=== PATIENT | male | born 1960 | race African-American/Black ===

== ENCOUNTER 2017-10-01 16:29 | Emergency (ER) | payer MEDICAID ==
[~2017-10-01] VITALS: Ht 190.5 cm; Wt 91.8 kg
[~2017-10-01 16:29] MED LIST: LISI-360 PO; LORTA5 PO; MELO15TA2 PO; METH750T2 PO; METO25CR PO
[2017-10-01 16:34] VITALS: BP 164/90; PULSE 75; RESP 16; TEMP 98.4; O2SAT 98
[2017-10-01] MEDS ORDERED: METO1TAB42 PO (16:48)
[2017-10-01] MEDS ORDERED: LISI10TA3 PO (16:48)
[2017-10-01] MEDS ORDERED: ASPI81CH7 CHEW (16:48)
--- NOTE | 2017-10-01 17:32 | PD ---
HPI Chief Complaint: Cold / Flu Symptoms Time Seen by Provider: 17:20 Travel History International Travel<30 days: No Contact w/Intl Traveler<30days: No Traveled to known affect area: No History of Present Illness HPI 56-year-old male presents to the emergency department for 2 separate issues. First, the patient reports cold symptoms that started on Tuesday, 4 days ago. He reports cough, congestion, low-grade fevers up to 100.0. Patient has been taking ibuprofen. He also reports left thigh and calf pain that started on Tuesday with paresthesias to the first 2 toes. Patient denies a traumatic injury. He denies any loss of bowel or bladder control. No saddle anesthesias. Current pain is 7/10. Exacerbating factors movement. Relieving factors keeping the foot still. Reports history of hypertension. He denies any history of IV drug use. Moderate severity. PFSH Past Medical History Hx Anticoagulant Therapy: Yes (BABY ASA DAILY) Cardiovascular Problems: Yes (HTN) Diabetes: No Diminished Hearing: No Hypertension: Yes Tetanus Vaccination: Unknown Social History Alcohol Use: No Tobacco Use: No Substance Use: No Allergies-Medications (Allergen,Severity, Reaction): Coded Allergies: No Known Allergies (Unverified Adverse Reaction, Unknown, 10/01/17) Reported Meds & Prescriptions Reported Meds & Active Scripts Active Reported Metoprolol Succinate ER 24 HR (Metoprolol Succinate) 25 Mg Tab 25 Mg PO DAILY Lisinopril 10 Mg Tab 10 Mg PO DAILY Aspirin Children's (Aspirin) 81 Mg Chew 81 Mg CHEW DAILY Review of Systems Except as stated in HPI: all other systems reviewed are Neg Physical Exam Narrative GENERAL: Well-nourished, well-developed male patient, afebrile. SKIN: Focused skin assessment warm/dry. HEAD: Normocephalic. Atraumatic. ENT: Mucosa pink and moist. No erythema or exudates. No uvular edema. No uvular , palatal, or tonsillar deviation. Airway patent. Nasal turbinates appear normal without nasal blood, purulent drainage or septal hematoma. Bilateral tympanic membranes clear without erythema or perforation. EYES: No scleral icterus. No injection or drainage. NECK: Supple, trachea midline. No JVD or lymphadenopathy. CARDIOVASCULAR: Regular rate and rhythm without murmurs, gallops, or rubs. Left pedal pulse is 2+. RESPIRATORY: Breath sounds equal bilaterally. No accessory muscle use. Lung sounds are clear to auscultation. GASTROINTESTINAL: Abdomen soft, non-tender, nondistended. MUSCULOSKELETAL: No cyanosis, or edema. Patient has tenderness over left posterior calf to palpation. No erythema or edema. He easily feels nailbed pressure to the digits of the left foot. Patient can easily move all digits of the left foot. Capillary refill is less than 2 seconds to the digits of the left foot. BACK: Nontender without obvious deformity. No CVA tenderness. No midline spinal tenderness. Data Data Last Documented VS Vital Signs Date Time Temp Pulse Resp B/P (MAP) Pulse Ox O2 Delivery O2 Flow Rate FiO2 10/01/17 16:34 98.4 75 16 164/90 (114) 98 Orders Orders Influenzae A/B Antigen (10/01/17 17:26) Chest, Pa & Lat (10/01/17 ) Us Leg Venous Doppler (10/01/17 ) Orphenadrine Inj (Norflex Inj) (10/01/17 17:30) [facility] Medical Decision Making Medical Screen Exam Complete: Yes Emergency Medical Condition: Yes Medical Record Reviewed: Yes Interpretation(s) Last Impressions Lower Extremity Ultrasound 10/01/17 0000 Signed Impressions: Service Date/Time: Sunday, October 01, 2017 17:54 - CONCLUSION: No DVT. Nick Gore MD Chest X-Ray 10/01/17 0000 Signed Impressions: Service Date/Time: Sunday, October 01, 2017 18:02 - CONCLUSION: No acute disease. Daniel Hanks MD Differential Diagnosis URI versus influenza versus pneumonia versus sciatica versus DVT versus muscle strain versus spasm Narrative Course 56-year-old male presents to the emergency department for evaluation of cold symptoms as well as left leg pain. He does appear well on exam. Patient recently took ibuprofen for pain. He is given Norflex 60 mg IM. Influenza, chest x-ray, venous Doppler ultrasound of the left lower extremity is ordered and pending. Influenza is positive for influenza A. Chest x-ray shows no acute disease. Ultrasound is negative for DVT. Patient will be discharged with a RX for Tamiflu for Flu. He will be discharged with a prescription for Ibuprofen, Robaxin, Prednisone for sciatica. He is encouraged to follow up with his primary care physician. He is to return for any acute, worsening of symptoms. Diagnosis Primary Impression: Influenza A Additional Impression: Sciatica Qualified Codes: M54.32 - Sciatica, left side Referrals: Primary Care Physician call for appointment Patient Instructions: General Instructions, Influenza (ED), Sciatica (ED) Departure Forms: Tests/Procedures, Work Release Enter return to work date: October 04, 2017 Additional Instructions: Take Tamiflu as directed. Take ibuprofen as directed as needed with food for pain. Take Robaxin as directed as needed. Take prednisone as directed. Follow-up with a primary care physician. Return to the emergency department for any acute worsening of symptoms. Med/Other Pt SpecificInfo: Prescription(s) given Scripts Methocarbamol (Robaxin) 750 Mg Tab 750 MG PO TID Y for MUSCLE SPASM, #21 TAB 0 Refills Prov: Tram Bender 10/01/17 Ibuprofen (Ibuprofen) 800 Mg Tab 800 MG PO TID Y for PAIN SCALE 1 TO 10, #21 TAB 0 Refills Prov: Tram Bender 10/01/17 Prednisone (Prednisone) 20 Mg Tab 40 MG PO DAILY, #10 TAB 0 Refills Take 40 mg (2 tablets) daily for 5 days Prov: Tram Bender 10/01/17 Oseltamivir (Tamiflu) 75 Mg Cap 75 MG PO BID for Mgmt Viral Infection for 5 Days, #10 CAP 0 Refills Prov: Tram Bender 10/01/17 Disposition: 01 DISCHARGE HOME Condition: Stable Tram Bender Oct 01, 2017 17:32
[2017-10-01] MEDS: ORPHENADRINE INJ 60 MG/2 ML AMP IM ONE ×2 (17:35→17:41)
--- NOTE | 2017-10-01 18:19 | RADRPT ---
EXAM DATE/TIME: 10/01/2017 18:02 [facility] COMPARISON: No previous studies available for comparison. INDICATIONS : Fever and flu symptoms. MEDICAL HISTORY : Hypertension. SURGICAL HISTORY : None. ENCOUNTER: Initial ACUITY: 4 - 6 days PAIN SCORE: 0/10 LOCATION: Bilateral chest FINDINGS: PA and lateral views of the chest demonstrate the lungs to be symmetrically aerated without evidence of mass, infiltrate or effusion. The cardiomediastinal contours are unremarkable. Osseous structure s are intact. CONCLUSION: No acute disease. Daniel Hanks MD on October 01, 2017 at 18:16 Board Certified Radiologist. This report was verified electronically.
--- NOTE | 2017-10-01 18:22 | RADRPT ---
EXAM DATE/TIME: 10/01/2017 17:54 [facility] COMPARISON: No previous studies available for comparison. INDICATIONS : Left leg pain x 4 days. No swelling or redness. MEDICAL HISTORY : Hypertension. SURGICAL HISTORY : Back surgery. ENCOUNTER: Initial ACUITY: 4 - 6 days PAIN SCORE: 3/10 LOCATION: Left leg. TECHNIQUE: Venous ultrasound of the leg was performed from the inguinal ligament to the proximal calf. Real-osbaldo e, color Doppler and spectral tracing, compression and augmentation techniques were used. FINDINGS: There is normal compressibility of the deep venous system from the inguinal region to the proximal ca lf. No echogenic clot is seen in the lumen of the common femoral, femoral, popliteal, and posterior tibial veins. There is a normal response of the venous system to proximal and distal augmentation an d respiration. CONCLUSION: No DVT. Nick Gore MD on October 01, 2017 at 18:19 Board Certified Radiologist. This report was verified electronically.
[2017-10-01] MEDS ORDERED: ROBA750T PO (18:48)
[2017-10-01] MEDS ORDERED: OSEL75 PO (18:48)
[2017-10-01] MEDS ORDERED: IBUP1TAB7 PO (18:48)
[2017-10-01] MEDS ORDERED: PRED20 PO (18:48)
== END 2017-10-01 19:00 | disposition home or self-care (01) ==
LOC: PHEFT 16:29
DX: J10.1 Influenza due to other identified influenza virus with other respiratory manifestations (principal); M54.32 Sciatica, left side; I10 Essential (primary) hypertension
CPT/HCPCS: 71046; 87804; 93971; 96372; 99285; J2360